=== PATIENT | female | born 1975 | race Caucasian/White ===

== ENCOUNTER 2018-02-07 14:19 | Emergency (ER) | payer SELFPAY ==
[2018-02-07] MEDS ORDERED: METHOCARBAMOL 750 MG TABLET PO ONE (15:21)
--- NOTE | 2018-02-07 15:26 | ER Document Report ---
ED General - General Mode of Arrival: Ambulatory Information source: Patient TRAVEL OUTSIDE OF THE [place] IN LAST 30 DAYS: No - General Chief Complaint: Flank Pain Stated Complaint: LOWER BACK PAIN Time Seen by Provider: 02/07/18 15:21 Notes: 42 y.o female with a Hx of kidneys stones presents to the ED with lower lumbar back pain and pain in her bilateral hips that radiates down her lower extremities. She reports that she pain feels musculoskeletal related and is relieved when she sits still but that after sitting still her pain and stiffness is worsened. Pt denies any known fever but states that she has experienced chills recently. She denies any dysuria, hematuria, incontinence, fall or trauma. Pt states that she tried taking Tylenol for her sx but is without much relief. (KAYLI TAYLOR) - Related Data Allergies/Adverse Reactions: bromfenac sodium [From Duract] Allergy (Verified 02/07/18 14:56) ibuprofen [From Motrin] Allergy (Verified 02/07/18 14:56) Penicillins Allergy (Verified 02/07/18 14:56) Past Medical History - General Information source: Patient - Social History Smoking Status: Current Every Day Smoker Chew tobacco use (# tins/day): No Frequency of alcohol use: None Drug Abuse: None Family History: Reviewed & Not Pertinent Patient has suicidal ideation: No Patient has homicidal ideation: No Renal/ Medical History: Denies: Hx Peritoneal Dialysis Malignancy Medical History: Reports: Hx Cervical Cancer, Hx Ovarian Cancer Musculoskeltal Medical History: Reports Hx Arthritis Past Surgical History: Reports: Hx Hysterectomy, Hx Orthopedic Surgery - shoulder surgery - Immunizations Immunizations up to date: Yes Hx Diphtheria, Pertussis, Tetanus Vaccination: Yes Review of Systems - Review of Systems Constitutional: See HPI, Chills. denies: Fever EENT: No symptoms reported Cardiovascular: No symptoms reported Respiratory: No symptoms reported Gastrointestinal: No symptoms reported Genitourinary: See HPI. denies: Dysuria, Hematuria, Incontinence Female Genitourinary: See HPI Musculoskeletal: See HPI, Back pain - lumbar, Joint pain - Bilat hips, Other - Bilateral leg pain Skin: No symptoms reported Hematologic/Lymphatic: No symptoms reported Neurological/Psychological: No symptoms reported -: Yes All other systems reviewed and negative Physical Exam - Vital signs Vitals: Temp Pulse Resp BP Pulse Ox 98.3 F 108 H 20 116/86 H 96 02/07/18 14:25 02/07/18 14:25 02/07/18 14:25 02/07/18 14:25 02/07/18 14:25 - Notes Notes: Physical Exam: General: Alert, appears well. HEENT: Normocephalic. Atraumatic. PERRL. Extraocular movements intact. Oropharynx clear. Neck: Supple. Non-tender. Respiratory: No respiratory distress. Clear and equal breath sounds bilaterally. Cardiovascular: Regular rate and rhythm. Abdominal: Normal Inspection. Non-tender. No distension. Normal Bowel Sounds. Back: mild midline tenderness to the lower lumbar. No CVA tenderness. No deformity or step off. Extremities: Moves all four extremities. Steady gate. Upper extremities: Normal inspection. Normal ROM. Lower extremities: Normal inspection. No edema. Normal ROM. Neurological: Normal cognition. AAOx4. Normal speech. Psychological: Normal affect. Normal Mood. Skin: Warm. Dry. Normal color. (KAYLI TAYLOR) Course - Re-evaluation Re-evalutation: 02/07/18 16:10 Patient symptoms consistent with sciatica will be prescribed Robaxin and instructed to follow-up with community clinic in the next week if symptoms are not resolving. No red flags to indicate any infectious or cauda equina symptoms. Patient was provided return precautions (PRISCILLA NIELSEN) - Vital Signs Vital signs: Temp Pulse Resp BP Pulse Ox 98.3 F 98 16 126/85 H 96 02/07/18 14:27 02/07/18 16:22 02/07/18 16:22 02/07/18 16:22 02/07/18 16:22 - Laboratory Laboratory results interpreted by me: 02/07/18 15:10 Urine Blood SMALL H Discharge - Discharge Clinical Impression: Sciatic leg pain Disposition: HOME, SELF-CARE Instructions: Sciatica ([facility]) Prescriptions: Methocarbamol [Robaxin 750 mg Tablet] 750 mg PO TID #40 tablet Scribe Attestation: 02/07/18 19:44 I personally performed the services described documentation, reviewed and edited the documentation which was dictated to describe my presence, and it accurately records my words and actions. (PRISCILLA NIELSEN) Scribe Documentation - Scribe Written by Scribe:: Soheila Parks 02/07/18 [id number] acting as scribe for :: Kendrick
[2018-02-07 16:00] LABS: APPEARANCE,URINE CLEAR; BILIRUBIN,URINE NEGATIVE (NEGATIVE); COLOR,URINE YELLOW; GLUCOSE, URINE NEGATIVE (NEGATIVE); KETONES,URINE NEGATIVE (NEGATIVE); LEUKOCYTE ESTERASE,URINE NEGATIVE (NEGATIVE); NITRITE,URINE NEGATIVE (NEGATIVE); PROTEIN,URINE NEGATIVE (NEGATIVE); URINE SPECIFIC GRAVITY 1.009; UROBILINOGEN,URINE NEGATIVE mg/dL (<2.0)
[2018-02-07 16:23] VITALS: BP 126/85
== END 2018-02-07 16:23 | disposition home or self-care (01) ==
LOC: ER 14:19
DX: M54.32 Sciatica, left side (principal); M54.31 Sciatica, right side; R10.9 Unspecified abdominal pain; M54.2 Cervicalgia; M25.552 Pain in left hip; M25.551 Pain in right hip; F17.200 Nicotine dependence, unspecified, uncomplicated; Z88.6 Allergy status to analgesic agent; Z88.0 Allergy status to penicillin; Z90.710 Acquired absence of both cervix and uterus
CPT/HCPCS: 99284; 81025; 81001; J3490

== ENCOUNTER 2018-11-30 10:50 | Emergency (ER) | payer SELFPAY ==
[2018-11-30 12:09] LABS: APPEARANCE,URINE CLEAR; BILIRUBIN,URINE NEGATIVE (NEGATIVE); COLOR,URINE STRAW; GLUCOSE, URINE NEGATIVE (NEGATIVE); KETONES,URINE NEGATIVE (NEGATIVE); LEUKOCYTE ESTERASE,URINE NEGATIVE (NEGATIVE); NITRITE,URINE NEGATIVE (NEGATIVE); PROTEIN,URINE NEGATIVE (NEGATIVE); URINE SPECIFIC GRAVITY 1.005; UROBILINOGEN,URINE NEGATIVE mg/dL (<2.0)
--- NOTE | 2018-11-30 12:30 | ER Document Report ---
ED Medical Screen (RME) - General Chief Complaint: Low Back Pain Stated Complaint: BACK PAIN, BLURRED VISION Time Seen by Provider: 11/30/18 12:03 Notes: RAPID MEDICAL EVALUATION DISCLOSURE I have seen this patient as part of a Rapid Medical Evaluation and, if applicable, placed any initially appropriate orders. The patient will be seen and fully evaluated, including a full history and physical exam, by a provider (in Main ED or Fast Track) when a room becomes available. 43-year-old female PMH chronic low back pain for 1 month here w c/o worsening past few days, rad down the L leg. Today she had some flash incontinence and L leg weakness which is abnormal for her. Pain is worse w mvmt. She also wonders if she may have a kidney stone EXAM Mild left lumbar paraspinal muscle TTP Strength 5/5 with intact sensation BLEs TRAVEL OUTSIDE OF THE [place] IN LAST 30 DAYS: No - Related Data Allergies/Adverse Reactions: bromfenac sodium [From Duract] Allergy (Verified 11/30/18 10:59) ibuprofen [From Motrin] Allergy (Verified 11/30/18 10:59) Penicillins Allergy (Verified 11/30/18 10:59) Past Medical History - Social History Chew tobacco use (# tins/day): No Frequency of alcohol use: None Drug Abuse: None Renal/ Medical History: Denies: Hx Peritoneal Dialysis Malignancy Medical History: Reports: Hx Cervical Cancer, Hx Ovarian Cancer Musculoskeltal Medical History: Reports Hx Arthritis Past Surgical History: Reports: Hx Hysterectomy, Hx Orthopedic Surgery - shoulder surgery - Immunizations Immunizations up to date: Yes Hx Diphtheria, Pertussis, Tetanus Vaccination: Yes Physical Exam - Vital signs Vitals: Temp Pulse Resp BP Pulse Ox 97.9 F 89 16 115/80 98 11/30/18 11:12 11/30/18 11:12 11/30/18 11:12 11/30/18 11:12 11/30/18 11:12 Course - Vital Signs Vital signs: Temp Pulse Resp BP Pulse Ox 97.9 F 89 16 115/80 98 11/30/18 11:12 11/30/18 11:12 11/30/18 11:12 11/30/18 11:12 11/30/18 11:12 - Laboratory Laboratory results interpreted by me: 11/30/18 11:44 Urine Blood SMALL H
--- NOTE | 2018-11-30 12:54 | RADIOLOGY REPORT (SQ) ---
EXAM DESCRIPTION: L SPINE 2 VIEWS COMPLETED DATE/TIME: 11/30/2018 12:43 pm REASON FOR STUDY: LBP numb tingl incontinence COMPARISON: CT abdomen pelvis 03/09/2016 NUMBER OF VIEWS: Two views. TECHNIQUE: AP and lateral radiographic images acquired of the lumbar spine. LIMITATIONS: None. FINDINGS: MINERALIZATION: Normal. SEGMENTATION: Normal. No transitional anatomy. ALIGNMENT: Grade 1 anterolisthesis of L5 over S1 VERTEBRAE: Maintained height. No fracture or worrisome bone lesion. DISCS: High-grade disc space loss of height at L5-S1 POSTERIOR ELEMENTS: Bilateral L5 spondylolysis. HARDWARE: None in the spine. PARASPINAL SOFT TISSUES: Normal. PELVIS: Not included in the field of view. SI joints unremarkable OTHER: No other significant finding. IMPRESSION: Advanced degenerative changes L5-S1 TECHNICAL DOCUMENTATION: JOB ID: [id number] [employer]- All Rights Reserved Reading location - IP/workstation name: [email or web address]
[2018-11-30 13:20] LABS: ABSOLUTE BASOPHILS # (AUTO) 0.1 10^3/uL (0.0-0.2); ABSOLUTE EOSINOPHILS # (AUTO) 0.3 10^3/uL (0.0-0.6); ABSOLUTE LYMPHOCYTES (AUTO) 3.5 10^3/uL (0.5-4.7); ABSOLUTE MONOCYTES (AUTO) 0.7 10^3/uL (0.1-1.4); ABSOLUTE NEUT (AUTO) 5.5 10^3/uL (1.7-8.2); BASOPHILS % (AUTO) 1.3 % (0-2); EOSINOPHILS % (AUTO) 3.2 % (0-6); HEMATOCRIT 39.9 % (36.0-47.0); HEMOGLOBIN 13.9 g/dL (12.0-15.5); LYMPHOCYTES % (AUTO) 34.4 % (13-45); MEAN CORPUSCULAR HEMOGLOBIN 33.5 pg (27.0-33.4); MEAN CORPUSCULAR HGB CONC 34.8 g/dL (32.0-36.0); MEAN CORPUSCULAR VOLUME 96 fl (80-97); MONOCYTES % (AUTO) 7.1 % (3-13); PLATELET COUNT 282 10^3/uL (150-450); RED BLOOD COUNT 4.15 10^6/uL (3.72-5.28); RED CELL DISTRIBUTION WIDTH 12.5 % (11.5-14.0); TOTAL CELLS COUNTED % (AUTO) 100 %; WHITE BLOOD COUNT 10.2 10^3/uL (4.0-10.5)
--- NOTE | 2018-11-30 13:20 | ER Document Report ---
ED Neck/Back Problem <OLAMIDE TIDWELL - Last Filed: 11/30/18 13:24> - General Mode of Arrival: Ambulatory Information source: Patient TRAVEL OUTSIDE OF THE [place] IN LAST 30 DAYS: No <EDUARDO NULL - Last Filed: 11/30/18 14:32> - General Chief Complaint: Low Back Pain Stated Complaint: BACK PAIN, BLURRED VISION Time Seen by Provider: 11/30/18 12:03 Notes: 43-year-old female who presents to the emergency department today with complaints of "sciatic back pain". Patient states she has a remote history of being diagnosed with sciatica. Patient presents today stating that she was bending over when her pain became worse. Patient mentions some urinary incontinence but then goes on to state that she has noticed that she dribbles urine when she laughs, coughs, or sneezes and that today when she did this she was having severe pain when bending over. (EDUARDO NULL) - Related Data Allergies/Adverse Reactions: bromfenac sodium [From Duract] Allergy (Verified 11/30/18 10:59) ibuprofen [From Motrin] Allergy (Verified 11/30/18 10:59) Penicillins Allergy (Verified 11/30/18 10:59) Past Medical History - General Information source: Patient - Social History Smoking Status: Never Smoker Cigarette use (# per day): No Chew tobacco use (# tins/day): No Frequency of alcohol use: None Drug Abuse: None Lives with: Family Family History: Reviewed & Not Pertinent Patient has suicidal ideation: No Patient has homicidal ideation: No Renal/ Medical History: Denies: Hx Peritoneal Dialysis Malignancy Medical History: Reports: Hx Cervical Cancer, Hx Ovarian Cancer Musculoskeletal Medical History: Reports Hx Arthritis Past Surgical History: Reports: Hx Hysterectomy, Hx Orthopedic Surgery - shoulder surgery - Immunizations Immunizations up to date: Yes Hx Diphtheria, Pertussis, Tetanus Vaccination: Yes <EDUARDO NULL - Last Filed: 11/30/18 14:32> Review of Systems - Review of Systems Constitutional: No symptoms reported EENT: No symptoms reported Cardiovascular: No symptoms reported Respiratory: No symptoms reported Gastrointestinal: No symptoms reported Genitourinary: No symptoms reported Female Genitourinary: No symptoms reported Musculoskeletal: See HPI, Other - bilateral leg/hip pain Skin: No symptoms reported Hematologic/Lymphatic: No symptoms reported Neurological/Psychological: No symptoms reported -: Yes All other systems reviewed and negative <EDUARDO NULL - Last Filed: 11/30/18 14:32> Physical Exam <EDUARDO NULL - Last Filed: 11/30/18 14:32> - Vital signs Vitals: Temp Pulse Resp BP Pulse Ox 97.9 F 89 16 115/80 98 11/30/18 11:12 11/30/18 11:12 11/30/18 11:12 11/30/18 11:12 11/30/18 11:12 - Notes Notes: Physical Exam: General: Alert, appears well. HEENT: Normocephalic. Atraumatic. PERRL. Extraocular movements intact. Oropharynx clear. Neck: Supple. Non-tender. Respiratory: No respiratory distress. Clear and equal breath sounds bilaterally. Cardiovascular: Regular rate and rhythm. Abdominal: Normal Inspection. Non-tender. No distension. Normal Bowel Sounds. Back: Non-tender. No deformity or step off. Extremities: Moves all four extremities. Upper extremities: Normal inspection. Normal ROM. Lower extremities: Exquisite tenderness with palpation over the left greater trochanter and the left lateral thigh over the tensor fascia latae. Neurological: Normal cognition. AAOx4. Normal speech. Psychological: Normal affect. Normal Mood. Skin: Warm. Dry. Normal color. (EDUARDO NULL) Course - Laboratory Result Diagrams: 11/30/18 12:55 11/30/18 12:55 - Diagnostic Test Radiology reviewed: Reports reviewed - Lumbar spine films show advanced degenerative changes at the L5-S1 disc space <OLAMIDE TIDWELL - Last Filed: 11/30/18 13:24> - Laboratory Result Diagrams: 11/30/18 12:55 11/30/18 12:55 <EDUARDO NULL - Last Filed: 11/30/18 14:32> - Vital Signs Vital signs: Temp Pulse Resp BP Pulse Ox 97.9 F 77 16 131/93 H 100 11/30/18 13:51 11/30/18 13:51 11/30/18 13:51 11/30/18 13:51 11/30/18 13:51 - Laboratory Laboratory results interpreted by me: 11/30/18 11/30/18 11:44 12:55 MCH 33.5 H Urine Blood SMALL H Discharge <OLAMIDE TIDWELL - Last Filed: 11/30/18 13:24> <EDUARDO NULL - Last Filed: 11/30/18 14:32> - Discharge Clinical Impression: Iliotibial band syndrome, left leg Degenerative arthritis of lumbar spine Qualifiers: Spinal osteoarthritis complication: without myelopathy or radiculopathy Qualified Code(s): M47.816 - Spondylosis without myelopathy or radiculopathy, lumbar region Condition: Stable Disposition: HOME, SELF-CARE Additional Instructions: Your physical exam shows that you have what is called the tensor fossa claudia syndrome or also called the iliotibial band syndrome. You may also have some bursitis over the greater trochanter of the left hip. Your x-rays show advanced degenerative changes at the L5-S1 disc space. Your history also suggests that you have been experiencing urinary stress incontinence, which is common in women who have gone through childbirth. Start taking the prednisone tomorrow as prescribed. You were given today's dose in the emergency room. Use moist heat to the painful left hip and thigh regions. Rest and limit walking as much as possible. Take ibuprofen or Aleve for the next several days to help with pain and inflammation control. Follow-up with a local medical doctor or orthopedic doctor if not improving. RETURN TO THE EMERGENCY ROOM IF ANY NEW OR WORSENING SYMPTOMS. Prescriptions: Prednisone [Deltasone 10 mg Tablet] 10 mg PO ASDIR PRN #21 tablet PRN Reason: Forms: Treatment of Relative/Child Scribe Attestation: 11/30/18 13:30 I personally performed the services described in the documentation, reviewed and edited the documentation which was dictated to the scribe in my presence, and it accurately records my words and actions. (OLAMIDE TIDWELL) Scribe Documentation - Scribe Written by Soheila:: Soheila Abebe, 11/30/2018 1432 acting as scribe for :: Dianne <EDUARDO NULL - Last Filed: 11/30/18 14:32>
[2018-11-30 13:30] LABS: ALANINE AMINOTRANSFERASE 10 U/L (9-52); ALBUMIN 4.2 g/dL (3.5-5.0); ALKALINE PHOSPHATASE 73 U/L (38-126); ANION GAP 7 (5-19); ASPARTATE AMINO TRANSFERASE 18 U/L (14-36); BILIRUBIN,DIRECT 0.2 mg/dL (0.0-0.4); BILIRUBIN,TOTAL 0.3 mg/dL (0.2-1.3); BLOOD UREA NITROGEN 10 mg/dL (7-20); CALCIUM 8.9 mg/dL (8.4-10.2); CARBON DIOXIDE 28 mmol/L (22-30); CHLORIDE 107 mmol/L (98-107); GLUCOSE 80 mg/dL (75-110); POTASSIUM 4.1 mmol/L (3.6-5.0); SODIUM 141.6 mmol/L (137-145); TOTAL PROTEIN 6.9 g/dL (6.3-8.2)
[2018-11-30] MEDS ORDERED: PREDNISONE 20 MG TABLET PO ONE (13:31)
[2018-11-30] MEDS ORDERED: NAPROXEN 250 MG TABLET PO ONE (13:32)
[2018-11-30 13:56] VITALS: BP 131/93
== END 2018-11-30 13:56 | disposition home or self-care (01) ==
LOC: ER 10:50
DX: M76.32 Iliotibial band syndrome, left leg (principal); M47.816 Spondylosis without myelopathy or radiculopathy, lumbar region; Z88.0 Allergy status to penicillin; Z88.6 Allergy status to analgesic agent
CPT/HCPCS: 99284; 36415; 87086; 85025; 87088; 80053; 81001; 87186; 72100; J7512

== ENCOUNTER 2020-06-28 12:39 | Emergency (ER) | payer OTHER ==
[2020-06-28] MEDS ORDERED: RALTEGRAVIR 400 MG TAB (6 TAB/ER DISP) PO PRN (13:21)
[2020-06-28] MEDS ORDERED: EMTRICITABINE/TENOFOVIR 200-300 MG TAB (3 TAB/ER DISP) PO PRN (13:21)
[2020-06-28] MEDS ORDERED: DIPH/PERTUSS(ACELL)/TETANUS VAC/PF 0.5 ML SYR (>=10YO) IM ONE (13:30)
--- NOTE | 2020-06-28 13:32 | ER Document Report ---
ED General - General Stated Complaint: NEEDLE STICK Notes: Patient is a 44-year-old white female with no significant past medical history presents the emergency department today status post occupational needlestick exposure to a known HIV patient. She was cannulating an arterial line with a h ollow bore needle when it reversed poking back through the skin surface puncturing the patient's radial edge of the left thumb. She states that she held pressure on the area called for help and when they got there to help hold pressure she pulled her glove off and noticed a lot of blood around the finger. States that she squeezed the wound and then washed it with soap and water copiously. States the bleeding has since ceased. She denies any numbness tingling or weakness. Was sent here for postexposure prophylaxis. She is unsure of her last tetanus. States that her hepatitis B series is up-to-date. Patient was known negative hep B and hep C, known HIV positive. This occurred at 10:30 AM. TRAVEL OUTSIDE OF THE [place] IN LAST 30 DAYS: No - Related Data Allergies/Adverse Reactions: bromfenac sodium [From Duract] Allergy (Verified 06/28/20 13:31) ibuprofen [From Motrin] Allergy (Verified 06/28/20 13:31) Penicillins Allergy (Verified 06/28/20 13:31) Past Medical History - Social History Smoking Status: Unknown if Ever Smoked Family History: Reviewed & Not Pertinent Renal/ Medical History: Denies: Hx Peritoneal Dialysis Malignancy Medical History: Reports: Hx Cervical Cancer, Hx Ovarian Cancer Musculoskeletal Medical History: Reports Hx Arthritis Past Surgical History: Reports: Hx Hysterectomy, Hx Orthopedic Surgery - shoulder surgery - Immunizations Immunizations up to date: Yes Hx Diphtheria, Pertussis, Tetanus Vaccination: Yes Review of Systems - Review of Systems Constitutional: denies: Fever EENT: denies: Eye pain Cardiovascular: denies: Chest pain Respiratory: denies: Cough Gastrointestinal: denies: Abdominal pain Genitourinary: denies: Pain Female Genitourinary: denies: Vaginal discharge Musculoskeletal: denies: Joint swelling Skin: Other - Puncture Hematologic/Lymphatic: denies: Blood clots Neurological/Psychological: Anxiety. denies: Lost consciousness Physical Exam - Vital signs Vitals: Temp Pulse Resp BP Pulse Ox 98.9 F 96 17 141/110 H 96 06/28/20 13:12 06/28/20 13:12 06/28/20 13:12 06/28/20 13:12 06/28/20 13:12 - General General appearance: Alert, Anxious In distress: None - Respiratory Respiratory status: No respiratory distress Chest status: Nontender Breath sounds: Normal Chest palpation: Normal - Cardiovascular Rhythm: Regular Heart sounds: Normal auscultation - Neurological Neuro grossly intact: Yes Cognition: Normal Orientation: AAOx4 - Psychological Associated symptoms: Anxious - Skin Skin Color: Other - Pinpoint puncture consistent with needlestick type injury to the proximal left radial side of the first digit. Hemostasis maintained. Good capillary refill distally. No foreign body visualized. Course - Re-evaluation Re-evalutation: 06/28/20 15:48 Baseline laboratory studies obtained. Doing hepatitis panel. HIV negative. Patient will continue prophylaxis and follow-up with outpatient occupational health. Will provide Zofran for any nausea or vomiting due to adverse reactions to the medications. Discussed with her the importance of outpatient follow-up and advised that she return here any ER immediately with any new, persistent or worsening symptoms. She verbalized understood and agreed. - Vital Signs Vital signs: Temp Pulse Resp BP Pulse Ox 98.9 F 96 17 141/110 H 96 06/28/20 13:12 06/28/20 13:12 06/28/20 13:12 06/28/20 13:12 06/28/20 13:12 - Laboratory Result Diagrams: 06/28/20 14:00 06/28/20 14:00 Laboratory results interpreted by me: 06/28/20 06/28/20 14:00 14:00 WBC 12.1 H BUN 5 L Discharge - Discharge Clinical Impression: Needlestick injury of finger Condition: Stable Disposition: HOME, SELF-CARE Instructions: Contaminated Needle-Stick ([facility]) Additional Instructions: Please follow-up with occupational health or your regular provider as soon as possible for continued surveillance and outpatient management. Please return here any ER immediately with any new, persistent or worsening symptoms. Prescriptions: Raltegravir Potassium [Isentress 400 mg Tablet] 400 mg PO BID #60 tablet Emtricitabine/Tenofovir (Tdf) [Truvada 100 mg-150 mg Tablet] 2 each PO DAILY #60 tablet Ondansetron [Zofran Odt 4 mg Tablet] 4 mg PO Q8 PRN #30 tab.rapdis PRN Reason:
[2020-06-28 14:28] LABS: ABSOLUTE BASOPHILS # (AUTO) 0.1 10^3/uL (0.0-0.2); ABSOLUTE EOSINOPHILS # (AUTO) 0.2 10^3/uL (0.0-0.6); ABSOLUTE LYMPHOCYTES (AUTO) 3.3 10^3/uL (0.5-4.7); ABSOLUTE MONOCYTES (AUTO) 0.6 10^3/uL (0.1-1.4); BASOPHILS % (AUTO) 0.5 % (0-2); EOSINOPHILS % (AUTO) 1.3 % (0-6); HEMATOCRIT 42.4 % (36.0-47.0); HEMOGLOBIN 14.5 g/dL (12.0-15.5); LYMPHOCYTES % (AUTO) 27.3 % (13-45); MEAN CORPUSCULAR HGB CONC 34.2 g/dL (32.0-36.0); MEAN CORPUSCULAR VOLUME 97 fl (80-97); MONOCYTES % (AUTO) 4.7 % (3-13); PLATELET COUNT 301 10^3/uL (150-450); RED BLOOD COUNT 4.39 10^6/uL (3.72-5.28); RED CELL DISTRIBUTION WIDTH 12.9 % (11.5-14.0); SEGMENTED NEUTROPHILS % (AUTO) 66.2 % (42-78); TOTAL CELLS COUNTED % (AUTO) 100 %; WHITE BLOOD COUNT 12.1 10^3/uL (4.0-10.5)
[2020-06-28 14:59] LABS: ALBUMIN 4.5 g/dL (3.5-5.0); ALKALINE PHOSPHATASE 98 U/L (38-126); ANION GAP 7 (5-19); ASPARTATE AMINO TRANSFERASE 19 U/L (14-36); BILIRUBIN,TOTAL 0.4 mg/dL (0.2-1.3); BLOOD UREA NITROGEN 5 mg/dL (7-20); CALCIUM 9.5 mg/dL (8.4-10.2); CARBON DIOXIDE 27 mmol/L (22-30); CHLORIDE 103 mmol/L (98-107); GLUCOSE 84 mg/dL (75-110); POTASSIUM 4.1 mmol/L (3.6-5.0); TOTAL PROTEIN 7.6 g/dL (6.3-8.2)
[2020-06-28 16:01] VITALS: BP 148/99
[2020-06-30 05:38] LABS: HEPATITS B SURFACE ANTIGEN Negative (Negative)
[2020-06-30 07:05] LABS: HEPATITIS C VIRUS ANTIBODY <0.1 s/co ratio (0.0-0.9)
== END 2020-06-28 16:01 | disposition home or self-care (01) ==
LOC: ER 12:39
DX: S61.032A Puncture wound without foreign body of left thumb without damage to nail, initial encounter (principal); W46.1XXA Contact with contaminated hypodermic needle, initial encounter; Y93.89 Activity, other specified; Y99.0 Civilian activity done for income or pay; Z20.6 Contact with and (suspected) exposure to human immunodeficiency virus [HIV]; F41.9 Anxiety disorder, unspecified; Z88.8 Allergy status to other drugs, medicaments and biological substances; Z88.0 Allergy status to penicillin
CPT/HCPCS: 36415; 80053; 80074; 85025; 86701; 90471; 90715; 99283